=== PATIENT | female | born 2000 | race Two or more races ===

== ENCOUNTER 2024-03-15 19:05 | Emergency (ER) | payer OTHER ==
[~2024-03-15] VITALS: Ht 160 cm; Wt 52.2 kg
[2024-03-15] MEDS ORDERED: LIDOCAINE 5% (PATCH) 1 EA PATCH TP ONE (20:13)
[2024-03-15] MEDS ORDERED: CYCLOBENZAPRINE 10 MG TABLET ONE (20:13)
[2024-03-15] MEDS ORDERED: IBUPROFEN 400 MG TABLET ONE (20:14)
[2024-03-15] MEDS: LIDOCAINE 5% (PATCH) 1 EA PATCH TP ONE (20:15)
[2024-03-15] MEDS: IBUPROFEN 400 MG TABLET PO ONE (20:15)
[2024-03-15] MEDS: CYCLOBENZAPRINE 10 MG TABLET PO ONE (20:15)
[2024-03-15] MEDS ORDERED: CYCL5TAB PO (20:59)
[2024-03-15] MEDS ORDERED: ACET-2605 PO (20:59)
[2024-03-15] MEDS ORDERED: IBUP-1955 PO (20:59)
[2024-03-15 21:11] VITALS: BP 119/88; TEMP 98; O2SAT 98
== END 2024-03-15 21:11 | disposition home or self-care (01) ==
LOC: ER 19:11
DX: M54.50 Low back pain, unspecified (principal); M79.652 Pain in left thigh; V43.52XA Car driver injured in collision with other type car in traffic accident, initial encounter; Y93.89 Activity, other specified; Y92.89 Other specified places as the place of occurrence of the external cause; Y99.8 Other external cause status